=== PATIENT | male | born 1985 | race Caucasian/White ===

== ENCOUNTER → 2017-11-15 | Outpatient (CLI) | payer OTHER ==
--- NOTE | 2017-11-18 10:46 | CPEEG ---
[f rep st] ELECTROENCEPHALOGRAM ELECTROENCEPHALOGRAM. DATE OF STUDY: 11/15/2017 DATE OF INTERPRETATION: 11/18/2017 INTERPRETATION: This EEG contains a mild degree of diffuse nonspecific slowing. These findings coul d be consistent with a mild diffuse disturbance of cerebral function or related to medication effect. There were no potentially epileptogenic abnormalities present in the awake or sleep recordings. REPORT: This EEG contains 9 Hz alpha activity to the posterior head regions. There was a mild degre e of diffuse nonspecific slowing composed of intermittent theta frequency activity and minimal delta frequency activity. There was no persistent high-amplitude, severe focal slowing present. There was no abnormal epileptiform activation at rest, during photic stimulation or hyperventilation. The pat ient became drowsy and fell asleep during the study. There was no abnormal activation during drowsin ess, sleep, or during times of arousal. /[id number]/MODL
== END ==
LOC: FCPNEURO 09:44
PROVIDERS: ATTEND Psychiatry & Neurology Neurology
DX: R55 Syncope and collapse (principal); Z72.820 Sleep deprivation

== ENCOUNTER 2019-01-02 11:45 | Inpatient (IN) | payer OTHER ==
--- NOTE | 2019-01-02 12:40 | EDPHY ---
H & P Stated Complaint: SI x1wk, plan to jump lst niht, no attempts, med change 2018 Time Seen by Provider: 01/02/19 12:22 HPI/ROS: CHIEF COMPLAINT: Suicidal ideation HISTORY OF PRESENT ILLNESS: 33-year-old male history of schizoaffective disorder, of: Residing at [facility] in the ER with child welfare caseworker from [facility]. Patient is complaining of progressive suicidal ideation. Last evening he went to the top floor of a parking structure and came close to jumping off. He notes recent change in his lithium medication. He denies hallucination. Denies street drug use. PRIMARY CARE PROVIDER: REVIEW OF SYSTEMS: 10 systems reviewed and negative with the exception of the elements mentioned in the history of present illness PAST MEDICAL & SURGICAL HISTORY: Schizoaffective disorder SOCIAL HISTORY: Denies acute alcohol or drug use PHYSICAL EXAM (Prior to examination, patient consented to physical exam, hands were washed and my usual and customary physical exam procedures followed) 1) GENERAL: Well-developed, well-nourished, alert and oriented. Appears to be in no acute distress. 2) HEAD: Normocephalic, atraumatic 3) HEENT: Pupils equal, round, reactive to light bilaterally. Sclera anicteric. Nasopharynx, oropharynx, clear, no lesions. MoistDry mucous membranes. Ears bilaterally with normal tympanic membranes. 4) NECK: Full range of motion, no meningeal signs. 5) LUNGS: Clear auscultation bilaterally, no wheezes, no rhonchi, no retractions. 6) HEART: Regular rate and rhythm, no murmur, no heave, no gallop. 7) ABDOMEN: No guarding, no rebound, no focal tenderness, negative McBurney's, negative Maldonado's, negative Rovsing's, negative peritoneal sign, 8) MUSCULOSKELETAL: Moving all extremities, no focal areas of tenderness, no obvious trauma. No peripheral edema or discoloration. 9) BACK: No CVA tenderness, no midline vertebral tenderness, no fluctuance, no step-off, no obvious trauma, no visual or palpable abnormality. 10) SKIN: No rash, no petechiae. 11) Psychiatric: Patient is oriented X 3, there is no agitation. Depressed, flat affect. Appears sad. 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, schizoaffective disorder, tonsillectomy - Social History Smoking Status: Current every day smoker Constitutional: Initial Vital Signs Temperature (C) 37.0 C 01/02/19 11:52 Heart Rate 117 H 01/02/19 11:52 Respiratory Rate 18 01/02/19 11:52 Blood Pressure 105/64 01/02/19 11:52 O2 Sat (%) 97 01/02/19 11:52 O2 Delivery Mode Room Air Allergies/Adverse Reactions: Penicillins Allergy (Unknown, Verified 01/02/19 11:52) Home Medications: Medication Instructions Recorded Ascorbic Acid [Vitamin C 500 mg 1,000 mg PO HS 07/05/16 (*)] Docusate Sodium [Colace 100 MG (*)] 200 mg PO HS 07/05/16 Levomefolate/Algal Oil 1 each PO HS 07/05/16 [[place]plin-Algal Oil 15 mg Capsule] Mirtazapine [Remeron] 15 mg PO HS 07/05/16 Magnesium Oxide [Magnesium Oxide 400 mg PO HS #0 tab 07/11/16 400 mg (*)] Benztropine Mesylate 1 mg PO HS 01/02/19 Herbals/Supplements -Info Only 1 ea PO DAILY 01/02/19 [place] Carbonate ER [Lithobid 300 600 mg PO HS 01/02/19 mg (*)] Lurasidone HCl [Latuda] 40 mg PO HS 01/02/19 Lurasidone HCl [Latuda] 120 mg PO HS 01/02/19 Nortriptyline HCl [Pamelor 25 mg 100 mg PO HS 01/02/19 (*)] Pantoprazole Sodium [Protonix 40mg 40 mg PO DAILY 01/02/19 (*)] cloZAPine [Clozaril (*)] 25 mg PO HS 01/02/19 cloZAPine [Clozaril (*)] 400 mg PO HS 01/02/19 lamoTRIgine [LamICTAL 100 MG (*)] 300 mg PO HS 01/02/19 Medical Decision Making ED Course/Re-evaluation: 12:34 p.m.: Discussed case with secondary supervising physician Dr. Nicko Burns in the ER. Patient endorses active suicidal ideation. Last evening he went to the top floor parking garage and came close to jumping. I think the patient poses an imminent danger to himself. 2:00 p.m.: Patient has been accepted for transfer [address] physician Dr. Aron Bates - Data Points Laboratory Results: Laboratory Results 01/02/19 12:50 01/02/19 12:50 01/02/19 01/02/19 01/02/19 12:50 12:50 12:50 WBC 6.33 10^3/uL 10^3/uL (3.80-9.50) RBC 4.60 10^6/uL 10^6/uL (4.40-6.38) Hgb 14.6 g/dL g/dL (13.7-17.5) Hct 44.7 % % (40.0-51.0) MCV 97.2 fL fL (81.5-99.8) MCH 31.7 pg pg (27.9-34.1) MCHC 32.7 g/dL g/dL (32.4-36.7) RDW 12.4 % % (11.5-15.2) Plt Count 202 10^3/uL 10^3/uL (150-400) MPV 9.0 fL fL (8.7-11.7) Neut % (Auto) 64.4 % % (39.3-74.2) Lymph % (Auto) 22.7 % % (15.0-45.0) [place] % (Auto) 9.6 % % (4.5-13.0) Eos % (Auto) 2.5 % % (0.6-7.6) Baso % (Auto) 0.5 % % (0.3-1.7) Nucleat RBC Rel Count 0.0 % % (0.0-0.2) Absolute Neuts (auto) 4.07 10^3/uL 10^3/uL (1.70-6.50) Absolute Lymphs (auto) 1.44 10^3/uL 10^3/uL (1.00-3.00) Absolute Monos (auto) 0.61 10^3/uL 10^3/uL (0.30-0.80) Absolute Eos (auto) 0.16 10^3/uL 10^3/uL (0.03-0.40) Absolute Basos (auto) 0.03 10^3/uL 10^3/uL (0.02-0.10) Absolute Nucleated RBC 0.00 10^3/uL 10^3/uL (0-0.01) Immature Gran % 0.3 % % (0.0-1.1) Immature Gran # 0.02 10^3/uL 10^3/uL (0.00-0.10) Sodium 140 mEq/L mEq/L (135-145) Potassium 3.9 mEq/L mEq/L (3.5-5.2) Chloride 105 mEq/L mEq/L (97-110) Carbon Dioxide 25 mEq/l mEq/l (22-31) Anion Gap 10 mEq/L mEq/L (6-14) BUN 13 mg/dL mg/dL (7-23) Creatinine 1.0 mg/dL mg/dL (0.7-1.3) Estimated GFR > 60 Glucose 83 mg/dL mg/dL (70-100) Calcium 10.2 mg/dL mg/dL (8.5-10.4) Salicylates < 1.0 mg/dL L mg/dL (2.0-20.0) Urine Opiates Screen NEGATIVE (NEGATIVE) Acetaminophen < 10 mcg/mL L mcg/mL (10-30) Urine Barbiturates NEGATIVE (NEGATIVE) Ur Phencyclidine Scrn NEGATIVE (NEGATIVE) Ur Amphetamine Screen NEGATIVE (NEGATIVE) U Benzodiazepines Scrn NON-NEGATIVE H (NEGATIVE) [place] 0.8 mEq/L mEq/L (0.6-1.2) Urine Cocaine Screen NEGATIVE (NEGATIVE) U Marijuana (THC) Screen NON-NEGATIVE H (NEGATIVE) Ethyl Alcohol < 10 mg/dL mg/dL (0-10) Departure - Departure Disposition: [facility] Clinical Impression: Suicidal ideation Condition: Fair
[2019-01-02 13:03] LABS: PLATELET COUNT 202 10^3/uL (150-400)
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
--- NOTE | 2019-01-02 13:59 | ASMTTCLDSP ---
TLC Discharge Disposition Disposition: Answers: Admit Disposition Notes: Notes: Admit 3N. Discharge Concerns/Recommendations: Notes: In consultation with [facility] ED physician, Nicko Burns MD and on-call psychiatrist, Aron Bates MD, both concurred that pt appears to meet 27-65 criteria requiring psychiatric hospitalization as pt appears to be at risk of harm to self due to a mental illness condition. Pt was read the Patient Rights and Responsibilities Statement on 01/02/19 at 1330 hrs, original placed on chart, and was given photocopy of Rights. Pt signed the Patient Rights. Pt was given the 3N prohibited belongings list while in the ED. Was patient given the Answers: Yes Inpatient Behavioral Health Prohibited Belongings List while in the ED? For inpatient Aron Bates MD admission, the following psychiatrist agreed to accept patient for admission to Behavioral Health ([facility]): Type of Hold: Answers: M1/72-hour Hold Hold initiated by: Answers: ED Physician Date Signed: 01/02/2019 01:59 PM Electronically Signed By:Ld Zuniga
--- NOTE | 2019-01-02 15:29 | PDCONSULT ---
Central Office Operator Supervisor Note: HPI: Marshall Dudley is a 33 yo male with a PMHx of shizoaffective d/o who presents to [facility] for suicidal ideation. Per chart review, patient went to top floor of parking structure last evening to jump off but did not. He has been on multiple medications for schizoaffective in the past and reports a recent change in lithium dosing. He currently denies chest pain, SOB, d/c, n/v, f/c, palpitations. ROS: 10 point review of systems was performed with systems negative including those mentioned in HPI. PE: GEN: Unkempt, NAD HEENT: Anicteric, PERRLA CARDS: RRR, no edema presents LUNGS: CTA b/l Abd: No distention Ext: No c/c/e Neuro: AAOx3, no focal deficits A&P: 1. Suicidal Ideations: In setting of hx of schizoaffective - Defer management to IP psych team for further evaluation 2. GERD - Reports has been on PPI in the past, not currently, no recent heartburn, no need to continue for now 3. Tobacco Abuse - Nicotine patch if requested Patient is medically cleared for admission to IP psychiatric unit for further assessment and management of active psychiatric issues. ]
[2019-01-02] MEDS ORDERED: MAG HYDROX/AL HYDROX/SIMETH 30 ML UDCUP PO PRN (15:33)
[2019-01-02] MEDS ORDERED: MAGNESIUM HYDROXIDE 30 ML UDCUP PO PRN (15:33)
[2019-01-02] MEDS ORDERED: OLANZapine DISINTEGR 10 MG TAB PO PRN (15:33)
[2019-01-02] MEDS ORDERED: ACETAMINOPHEN 325 MG TAB PO PRN (15:33)
[2019-01-02] MEDS: MAGNESIUM OXIDE 400 MG TAB PO SCH (20:23)
[2019-01-02] MEDS: lamoTRIgine 100 MG TAB PO SCH (20:23)
[2019-01-02] MEDS: ASCORBIC ACID 500 MG TAB PO SCH (20:23)
[2019-01-02] MEDS: cloZAPine 100 MG TAB PO SCH (20:24)
[2019-01-02] MEDS: DOCUSATE SODIUM 100 MG CAP PO SCH (20:24)
[2019-01-02] MEDS: ALGAL OIL PO SCH (20:32)
[2019-01-02] MEDS: LEVOMEFOLATE PO SCH (20:32)
[2019-01-02] MEDS: LORazepam 0.5 MG TAB PO PRN (20:54)
[2019-01-03] MEDS: PANTOPRAZOLE SODIUM 40 MG TAB PO SCH (08:05)
[2019-01-03] MEDS: NICOTINE POLACRILEX 2 MG GUM B PRN ×5 (08:18→18:23)
--- NOTE | 2019-01-03 08:47 | ASMTBHMTP ---
Master Treatment Plan Master Treatment Plan Answers: Depressed Mood with for: Suicidal Ideation Date: 01/02/2019 Diagnosis on Admission: Schizoaffective Disorder, Bipolar Type 295.70 (F25.0) Expected length of stay: 3-5 days Reason for admission: Notes: Per Report: Pt is a 33 yo male with history of schizoaffective disorder, cannabis use disorder, moderate, and anorexia. Pt is well known to [facility] behavioral health from previous inpatient and outpatient treatments both on the inpatient psychiatric unit and in inpatient and outpatient ECT. Pt was brought to [facility] ED today accompanied by [facility] staff due to pt struggling again with suicidal ideation. He was then placed on M1 hold by ED provider which noted: Marshall complained of suicidal ideation. Last night, went to a parking garage and thought about jumping. He poses an imminent danger to himself. Pt noted recent change in his [place] medication. His most recent inpatient stay at [facility] was from 07/05/16 to 08/08/16 after pt was transferred to [facility] from [facility]. Pt has a history of psychotic depression which was conceptualized by his long-time psychiatrist, Dr. Hyatt as being separate from his schizoaffective disorder. When this occurs, pt will have intense feelings of guilt, shame, low self-worth and increased paranoia in a delusional system that seems to only emerge during his severe depression. He will also then have intense thoughts of self-harm and suicide. This had been occurring off and on and had led to several hospitalizations in 2016. Pt has responded well to ECT treatments, both on an inpatient and outpatient maintenance basis. He has been in [facility] for the past 12 years. He was admitted to [facility] residential program on 12/22/18 and his current psychiatrist is Jocelin Espinoza MD. Patient's stated presenting problems: Notes: "[I] had suicidal ideations." Patient's goals for treatment: Notes: "To see a doctor and probably make a medication change." Patient's strengths: Notes: None really Identify supports outside of hospital: Notes: "[facility]" Discharge criteria: Notes: Suicidal Ideation will resolve and patient will have a plan to safely manage recurrent suicidal ideaitons. Initial disposition plan/considerations: Notes: Return to [facility] or [facility]* Master Treatment Plan Required Signatures Psychiatrist signature: Answers: Psychiatrist: RN on-shift signature: Answers: RN: Patient signature: Answers: Patient: Date Signed: 01/03/2019 08:47 AM Electronically Signed By:Gus Zarate
--- NOTE | 2019-01-03 13:33 | ASMTCMCOM ---
CM Note CM Note Notes: Client presents as mostly pleasant towards this inspector automatic typewriter. He remains walking up and down the hallway for the majority of his free time. Client suggests he "would like to return to [facility] when I get out hospital..." Client does show some limited insight towards his mental health issues by acknowledging his want/need to transition to [facility], etc. Client's affect is alert, normal eye contact, guarded at times while restrictive at times. Client will be on the unit throughout the weekend with a re-assessment on Saturday to determine what his stay in the hospital would look like. Date Signed: 01/03/2019 01:33 PM Electronically Signed By:Gus Zarate
[2019-01-03] MEDS: ASCORBIC ACID 500 MG TAB PO SCH (21:09)
[2019-01-03] MEDS: LITHIUM CARBONATE ER 300 MG TAB PO SCH (21:09)
[2019-01-03] MEDS: lamoTRIgine 100 MG TAB PO SCH (21:10)
[2019-01-03] MEDS: cloZAPine 100 MG TAB PO SCH (21:10)
[2019-01-03] MEDS ORDERED: OLANZapine DISINTEGR 10 MG TAB PO PRN (21:11)
[2019-01-03] MEDS: MAGNESIUM OXIDE 400 MG TAB PO SCH (21:11)
[2019-01-03] MEDS: DOCUSATE SODIUM 100 MG CAP PO SCH (21:13)
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
[2019-01-03] MEDS: LEVOMEFOLATE PO SCH (22:22)
[2019-01-03] MEDS: ALGAL OIL PO SCH (22:22)
[2019-01-04] MEDS: PANTOPRAZOLE SODIUM 40 MG TAB PO SCH (08:33)
[2019-01-04] MEDS ORDERED: LITHIUM CARBONATE ER 300 MG TAB PO SCH (09:00)
[2019-01-04] MEDS: NICOTINE POLACRILEX 2 MG GUM B PRN ×4 (10:40→18:23)
[2019-01-04] MEDS: cloZAPine 100 MG TAB PO SCH (20:53)
[2019-01-04] MEDS: MAGNESIUM OXIDE 400 MG TAB PO SCH (20:54)
[2019-01-04] MEDS: LITHIUM CARBONATE ER 300 MG TAB PO SCH (20:54)
[2019-01-04] MEDS: lamoTRIgine 100 MG TAB PO SCH (20:54)
[2019-01-04] MEDS: ASCORBIC ACID 500 MG TAB PO SCH (20:54)
[2019-01-04] MEDS: DOCUSATE SODIUM 100 MG CAP PO SCH (20:55)
[2019-01-04] MEDS: LEVOMEFOLATE PO SCH (21:19)
[2019-01-04] MEDS: ALGAL OIL PO SCH (21:19)
--- NOTE | 2019-01-04 22:03 | SOAPPROG ---
SOAP Progress Note Assessment/Plan: Assessment: 33yo w hx schizoaffective d/o and THC use d/o, admitted with incr SI and recent plan/intent to jump from parking structure. considering ECT b/c notes this helped in past. has had recent med changes and recent transition to residential tx from apt due to incr sxs. Plan: 01/04/19 15:21 slept 8hr. only drinking Ensure and snacks, but not meals. continues on SP-1. on interview, reported +SI this morning, until this afternoon when he started to pray. felt this helped. however, notes he did not feel full of "sorrow" this AM which is like a heavy weight for him. but SI usually resolve much more quickly. Endorses +AH "pretty negative", external, which is not command but rather contributes to SI, telling him to give up on life, life is not worth living..." denies hx of restricting or weight concerns nor a fear of eating. just rather reports restlessness causes him to not feel like eating. states Latuda quit working for him. not feeling as physically restless as when on it. denies s/e to [place]. used to be on higher doses of Clozapine and Lamictal. Variably recalls that something was helpful but then reports not sure if it was helpful. Wants something in AM for his SI. Discussed med options, considered incr Clozapine to 50/400, seems he may have had recent incr to 450 as outpt. later then pt changes mind, seeming to have been worrying about this since decision made, and wants just to take all at HS. but easily persuaded to just try additional low dose Clozapine in AM. Wants to do ECT or maybe not b/c he "was desperate yesterday" but not so today. Altho "I'm optimistic" about a response to med changes. Yet also states he was having "some anger, wanted to punch a wall, because I've been stuck in this suicidal pattern", waking up depressed w/SI. wakes at 3-4am. states he's not sure why he was on Remeron or Nortriptyline but had been on the latter for 2-3yr not sure if that dose. denies feeling more agitated, restless, or noting other s/e of d/c of Nortriptyline. has not been requesting prn Ativan, and this was a home med at 0.5mg bid. encouraged pt to request if needing for now. mse: cooperative, seems eager to engage in conversation. nml speech rate/low vol and soft-spoken, slightly dysarticulate seems due to missing teeth. no abn invol mvmts noted. depressed mood, dysphoric affect, tp/tc- perseverative on his chronic AM SI and depression, and ambivalence, reporting AH but does not currently appear RIS. +SI as noted but not presently, and denied plan/intent to harm self, but such persistent thoughts are distressing. denied thoughts to harm others. i/j both fair. recognizes need for hosp/tx. cognition intact. A& Ox4. PLAN: Pt wants to discuss ECT, but also ambivalent, shani recalls benefit. Restarted on several home meds but some held to decr polypharm and pt questions benefit. not seeming to have any signif physical sxs related to d/c of meds --restarted clozapine 400hs (altho may have been on 450mg)- pt willing to take 50mg in AM. States he used to be on much higher in past, >500mg. --Cont [place] at pt request for mood stabilization. recalls this med was recently increased. currently 300/600. divided dose to give some AM effect --Cont Lamictal 300mg HS. (in 2016 was on higher dose. --off Nortriptyline 100mg hs. States has been on this for 2+yr. May experience some discontinuation effects from this. Will hold off on restarting this med for now --During week, need to D/W oupt [facility] provider his med hx, hx of med changes, responses, indications etc. --cont on SP-1. Objective: Vital Signs Temp Pulse Resp BP Pulse Ox 36.4 C 97 15 97/62 L 97 01/04/19 06:00 01/04/19 06:00 01/04/19 06:00 01/04/19 06:00 01/04/19 06:00 ICD10 Worksheet Patient Problems: Problems Problem Status Onset Suicidal ideation Acute Homicidal ideation Acute Schizo-affective schizophrenia, chronic condition with acute exacerbation Acute
[2019-01-05] MEDS: LORazepam 0.5 MG TAB PO PRN ×2 (06:29→16:07)
[2019-01-05] MEDS: NICOTINE POLACRILEX 2 MG GUM B PRN ×3 (08:54→14:00)
[2019-01-05] MEDS: PANTOPRAZOLE SODIUM 40 MG TAB PO SCH (08:54)
--- NOTE | 2019-01-05 17:45 | SOAPPROG ---
SOAP Progress Note Assessment/Plan: Assessment: Plan: 01/05/19 17:46 Mood: 33 y/o CM well known to me from previous treatments. He presents with treatment resistant mood disorder and SI. He is requesting retrial of ECT after failed meds and TMS. Will discuss with pt's outpatient psychiatrist, Dr. Simon, and formulate plan. Will restart Latuda. EKG ordered. Subjective: Pt seen, discussed with staff, chart reviewed. Interviewed with therapist, Billy, present from [facility]. Discussed recent course and he notes "feeling depressed for two years." Describes no real benefit from TMS. He states he is motivated to do another trial of ECT. We discussed the possibility of that. I indicated that I would review that and the medications with Dr. Simon. Pt states he wants to be back on Latuda. Objective: Vital Signs Temp Pulse Resp BP Pulse Ox 36.9 C 90 16 125/76 H 98 01/05/19 06:00 01/05/19 06:00 01/05/19 06:00 01/05/19 06:00 01/05/19 06:00 Marginally groomed, very thin. Pleasant and cooperative. Affect is restricted , dysphoric, stable, approp. Mood is "depressed." TP is linear. TC reveals no mention of delusions or hallucinations. - Time Spent With Patient Time Spent With Patient: 35" ICD10 Worksheet Patient Problems: Problems Problem Status Onset Suicidal ideation Acute Homicidal ideation Acute Schizo-affective schizophrenia, chronic condition with acute exacerbation Acute
[2019-01-05] MEDS: MAGNESIUM OXIDE 400 MG TAB PO SCH (21:29)
[2019-01-05] MEDS: LITHIUM CARBONATE ER 300 MG TAB PO SCH (21:29)
[2019-01-05] MEDS: cloZAPine 100 MG TAB PO SCH (21:30)
[2019-01-05] MEDS: lamoTRIgine 100 MG TAB PO SCH (21:30)
[2019-01-05] MEDS: DOCUSATE SODIUM 100 MG CAP PO SCH ×2 (21:30→21:34)
[2019-01-05] MEDS: ASCORBIC ACID 500 MG TAB PO SCH (21:31)
[2019-01-05] MEDS: ALGAL OIL PO SCH (21:31)
[2019-01-05] MEDS: LEVOMEFOLATE PO SCH (21:31)
[2019-01-06] MEDS: LURASIDONE HCL 80 MG TAB PO SCH (08:09)
[2019-01-06] MEDS: PANTOPRAZOLE SODIUM 40 MG TAB PO SCH (08:10)
[2019-01-06] MEDS ORDERED: LURASIDONE HCL 40 MG TAB PO SCH (09:00)
[2019-01-06] MEDS: LORazepam 0.5 MG TAB PO PRN (09:06)
[2019-01-06] MEDS: NICOTINE POLACRILEX 2 MG GUM B PRN ×2 (14:40→20:03)
--- NOTE | 2019-01-06 14:56 | SOAPPROG ---
SOAP Progress Note Assessment/Plan: Assessment: Plan: 01/05/19 17:46 Mood: 33 y/o CM well known to me from previous treatments. He presents with treatment resistant mood disorder and SI. He is requesting retrial of ECT after failed meds and TMS. Will discuss with pt's outpatient psychiatrist, Dr. Simon, and formulate plan. Will restart Latuda. EKG ordered. 01/06/19 14:57 Mood: Remains depressed with prominent SI, paranoia. Will proceed with ECT starting tomorrow. I again reviewed the risks, benefits and alternatives with patient and he is able to give informed consent. Subjective: Pt seen, discussed with staff, interviewed in Treatment Team. Case reviewed with Dr. Simon, pt's outpatient provider. He is in agreement with ECT. Pt tells the TT today that he is sure Latuda "is not working any more" and wants to discontinue it. I reflected to him that this is in contrast to his strong desire to take it yesterday. He acknowledges this, but does not change his opinion. He is compliant with meds. Rather guarded, but not isolative. Objective: Vital Signs Temp Pulse Resp BP Pulse Ox 36.5 C 104 H 16 121/82 H 98 01/06/19 06:00 01/06/19 06:00 01/06/19 06:00 01/06/19 06:00 01/06/19 06:00 MSE: Moderately anxious, guarded, coop. Affect is restricted, stable, approp. Mood is "not good." TP is linear. TC reveals some paranoia. SI persists. - Time Spent With Patient Time Spent With Patient: 25" ICD10 Worksheet Patient Problems: Problems Problem Status Onset Suicidal ideation Acute Homicidal ideation Acute Schizo-affective schizophrenia, chronic condition with acute exacerbation Acute
[2019-01-06] MEDS ORDERED: HYDROCODONE/APAP 5/325 TAB PO PRN (15:03)
[2019-01-06] MEDS ORDERED: ONDANSETRON DISINTEGRATING 4 MG TAB PO PRN (15:03)
[2019-01-06] MEDS ORDERED: IBUPROFEN 600 MG TAB PO PRN (15:03)
[2019-01-06] MEDS: LITHIUM CARBONATE ER 300 MG TAB PO SCH (18:07)
[2019-01-06] MEDS: lamoTRIgine 100 MG TAB PO SCH (18:07)
[2019-01-06] MEDS: MAGNESIUM OXIDE 400 MG TAB PO SCH (20:05)
[2019-01-06] MEDS: DOCUSATE SODIUM 100 MG CAP PO SCH (20:05)
[2019-01-06] MEDS: cloZAPine 100 MG TAB PO SCH (20:06)
[2019-01-06] MEDS: LEVOMEFOLATE PO SCH (20:06)
[2019-01-06] MEDS: ALGAL OIL PO SCH (20:06)
[2019-01-06] MEDS: ASCORBIC ACID 500 MG TAB PO SCH (20:06)
[2019-01-07] MEDS ORDERED: ONDANSETRON DISINTEGRATING 4 MG TAB PO PRN (05:00)
[2019-01-07] MEDS ORDERED: CITRIC ACID/SODIUM CITRATE 30 ML UDCUP PO PRN (05:00)
[2019-01-07] MEDS ORDERED: ONDANSETRON 4 MG/2 ML VIAL ONE (07:24)
[2019-01-07] MEDS ORDERED: fentaNYL 100 MCG/2 ML INJ ONE (07:24)
[2019-01-07] MEDS ORDERED: MIDAZOLAM 2 MG/2 ML VIAL ONE (07:24)
[2019-01-07] MEDS ORDERED: METHOHEXITAL SODIUM 100 MG/10 ML SYR IVP ONE (07:24)
[2019-01-07] MEDS ORDERED: GLYCOPYRROLATE 0.2 MG/1 ML VIAL ONE (07:24)
[2019-01-07] MEDS ORDERED: SUCCINYLCHOLINE CHLORIDE 200 MG/10 ML VIAL ONE (07:24)
[2019-01-07] MEDS: PANTOPRAZOLE SODIUM 40 MG TAB PO SCH (07:41)
[2019-01-07] MEDS: LURASIDONE HCL 80 MG TAB PO SCH (07:47)
[2019-01-07] MEDS ORDERED: ONDANSETRON DISINTEGRATING 4 MG TAB ONE (09:54)
[2019-01-07] MEDS ORDERED: CITRIC ACID/SODIUM CITRATE 30 ML UDCUP ONE (09:54)
[2019-01-07] MEDS: NS 1,000 ML IV PRN (09:57)
--- NOTE | 2019-01-07 10:11 | PDHPUP ---
History & Physical Update H&P update statement: This history and physical update is based on an assessment of the patient which was completed after admission or registration (within 24 hours), but prior to the surgery/procedure. H&P update: H&P reviewed & patient examined, no change in patient's condition since H&P completed
--- NOTE | 2019-01-07 10:11 | PDANEPAE ---
ANE Past Medical History - Cardiovascular History Hx Hypertension: No Hx Arrhythmias: No Hx Chest Pain: No Hx Coronary Artery / Peripheral Vascular Disease: No Hx Palpitations: No - Pulmonary History Hx Oxygen in Use at Home: No Hx Sleep Apnea: No - Neurologic History Hx Cerebrovascular Accident: No - Endocrine History Hx Diabetes: No Obesity: no - Renal History Hx Renal Disorders: No - Liver History Hx Hepatic Disorders: No - Cancer History Hx Cancer: No - Chronic Pain History Chronic Pain: No - Surgical History Prior Surgeries: None ANE Review of Systems Review of Systems: ANE Patient History - Allergies Allergies/Adverse Reactions: Penicillins Allergy (Unknown, Verified 01/02/19 11:52) - Home Medications Home medications: home medication list seen and reviewed Home Medications: Ascorbic Acid [Vitamin C 500 mg (*)] 1,000 mg PO HS 07/05/16 [Last Taken ] Docusate Sodium [Colace 100 MG (*)] 200 mg PO HS 07/05/16 [Last Taken Unknown] Levomefolate/Algal Oil [Deplin-Algal Oil 15 mg Capsule] 1 each PO HS 07/05/16 [ Last Taken Unknown] Mirtazapine [Remeron] 15 mg PO HS 07/05/16 [Last Taken 07/03/16] Benztropine Mesylate 1 mg PO HS 01/02/19 [Last Taken Unknown] Herbals/Supplements -Info Only 1 ea PO DAILY 01/02/19 [Last Taken Unknown] [place] Carbonate ER [Lithobid 300 mg (*)] 600 mg PO HS 01/02/19 [Last Taken Unknown] Lurasidone HCl [Latuda] 40 mg PO HS 01/02/19 [Last Taken Unknown] Lurasidone HCl [Latuda] 120 mg PO HS 01/02/19 [Last Taken Unknown] Nortriptyline HCl [Pamelor 25 mg (*)] 100 mg PO HS 01/02/19 [Last Taken Unknown] Pantoprazole Sodium [Protonix 40mg (*)] 40 mg PO DAILY 01/02/19 [Last Taken Unknown] cloZAPine [Clozaril (*)] 25 mg PO HS 01/02/19 [Last Taken Unknown] cloZAPine [Clozaril (*)] 400 mg PO HS 01/02/19 [Last Taken Unknown] lamoTRIgine [LamICTAL 100 MG (*)] 300 mg PO HS 01/02/19 [Last Taken Unknown] - NPO status NPO Status: no food or drink >8 hours - Anes Hx Anes Hx: no prior problems - Smoking Hx Smoking Status: Current every day smoker - Family Anes Hx Family Hx Anesthesia Complications: None ANE Labs/Vital Signs - Labs Result Diagrams: 01/02/19 12:50 01/02/19 12:50 - Vital Signs Blood Pressure: 114/87 Heart Rate: 119 Respiratory Rate: 16 O2 Sat (%): 99 Height: 180.34 cm Weight: 51.256 kg ANE Physical Exam - Airway Neck exam: FROM Mallampati Score: Class 2 Mouth exam: normal dental/mouth exam - Pulmonary Pulmonary: no respiratory distress, no rales or rhonchi, clear to auscultation - Cardiovascular Cardiovascular: regular rate and rhythym, no murmur, rub, or gallop - ASA Status ASA Status: II ANE Anesthesia Plan Anesthesia Plan: GA with mask
[2019-01-07] MEDS ORDERED: KETOROLAC 30 MG/1 ML SDV ONE (10:17)
--- NOTE | 2019-01-07 10:20 | PDECTPN ---
ECT Progress Note Patient Problems: Problems Problem Status Onset Code Suicidal ideation Acute R45.851 Homicidal ideation Acute R45.850 Schizo-affective schizophrenia, chronic condition with acute exacerbation Acute F25.8 Date: 01/07/19 ECT provider: Beka Bates Anesthesia: Hunter Lima Stimulus dose (%): 75 Pulse width: 0.5 ECT EMG (sec): 52 ECT EEG (sec): 119 ECT treatment type: bilateral QIDS-SR Total Score: 21 QIDS-SR Question #12 Score: 3 MMSE Total Score (Max = 21): 21 Next ECT date: 01/09/19 Home medications: Medication Instructions Recorded Ascorbic Acid [Vitamin C 500 mg 1,000 mg PO HS 07/05/16 (*)] Docusate Sodium [Colace 100 MG (*)] 200 mg PO HS 07/05/16 Levomefolate/Algal Oil 1 each PO HS 07/05/16 [Deplin-Algal Oil 15 mg Capsule] Mirtazapine [Remeron] 15 mg PO HS 07/05/16 Magnesium Oxide [Magnesium Oxide 400 mg PO HS #0 tab 07/11/16 400 mg (*)] Benztropine Mesylate 1 mg PO HS 01/02/19 Herbals/Supplements -Info Only 1 ea PO DAILY 01/02/19 [place] Carbonate ER [Lithobid 300 600 mg PO HS 01/02/19 mg (*)] Lurasidone HCl [Latuda] 40 mg PO HS 01/02/19 Lurasidone HCl [Latuda] 120 mg PO HS 01/02/19 Nortriptyline HCl [Pamelor 25 mg 100 mg PO HS 01/02/19 (*)] Pantoprazole Sodium [Protonix 40mg 40 mg PO DAILY 01/02/19 (*)] cloZAPine [Clozaril (*)] 25 mg PO HS 01/02/19 cloZAPine [Clozaril (*)] 400 mg PO HS 01/02/19 lamoTRIgine [LamICTAL 100 MG (*)] 300 mg PO HS 01/02/19 Medication review: completed Current treatment plan: acute phase Treatment plan frequency: 3 times per week ECT narrative: Pt presents to begin acute course ECT. Currently inpatient due to acute depression and SI. Case reviewed with outpatient psychiatrist, Dr. Simon, who is supportive of treatment. He reports "bad depression" and trouble sleeping. Also c/o some paranoia, but is guarded re: psychotic sx's. Poorly groomed, guarded, coop. Affect is dysphoric, restricted, stable. Mood is "depressed." TP is linear. TC reveals paranoia. Underwent bilateral ECT with no complications. Continued acute course ECT.
--- NOTE | 2019-01-07 10:34 | POSTANESTH ---
Post Anesthetic Evaluation Cardiovascular Status: Normal, Stable, Similar to Pre-Op Cond Respiratory Status: Normal, Stable, Similar to Pre-op Cond. Level of Consciousness/Mental Status: Unconscious Complications Possibly Related to Anesthesia: None Noted
--- NOTE | 2019-01-07 13:54 | ASMTCMCOM ---
CM Note CM Note Notes: Client presents as mostly pleasant towards this typewriter tester. Client suggests he "would like to return to [facility] when I get out hospital..." Client does show some limited insight towards his mental health issues by acknowledging his want/need to transition to [facility], etc. Client's affect is appropriate for someone just having ECT. Client had first ECT treatment and rested for the majority of the day.* Date Signed: 01/07/2019 01:54 PM Electronically Signed By:Gus Zarate
[2019-01-07] MEDS: NICOTINE POLACRILEX 2 MG GUM B PRN (17:51)
[2019-01-07] MEDS: DOCUSATE SODIUM 100 MG CAP PO SCH (20:05)
[2019-01-07] MEDS: ASCORBIC ACID 500 MG TAB PO SCH (20:45)
[2019-01-07] MEDS: LITHIUM CARBONATE ER 300 MG TAB PO SCH (20:45)
[2019-01-07] MEDS: lamoTRIgine 100 MG TAB PO SCH (20:45)
[2019-01-07] MEDS: MAGNESIUM OXIDE 400 MG TAB PO SCH (20:45)
[2019-01-07] MEDS: cloZAPine 100 MG TAB PO SCH (20:45)
[2019-01-07] MEDS: ALGAL OIL PO SCH (20:49)
[2019-01-07] MEDS: LEVOMEFOLATE PO SCH (20:49)
[2019-01-08] MEDS: PANTOPRAZOLE SODIUM 40 MG TAB PO SCH (08:40)
[2019-01-08] MEDS: LURASIDONE HCL 80 MG TAB PO SCH (08:53)
--- NOTE | 2019-01-08 09:04 | CPEKG ---
Test Reason : OPEN Blood Pressure : / mmHG Vent. Rate : 098 BPM Atrial Rate : 098 BPM P-R Int : 160 ms QRS Dur : 076 ms QT Int : 332 ms P-R-T Axes : 065 066 060 degrees QTc Int : [address] ELEV, PROBABLE NORMAL EARLY REPOL PATTERN Confirmed by Bobby Lal ([id number]) on 01/08/2019 9:04:30 AM Referred By: Beka Bates Confirmed By:Bobby Lal
[2019-01-08] MEDS: NICOTINE POLACRILEX 2 MG GUM B PRN ×8 (09:19→20:30)
--- NOTE | 2019-01-08 16:02 | SOAPPROG ---
SOAP Progress Note Assessment/Plan: Assessment: Plan: 01/05/19 17:46 Mood: 33 y/o CM well known to me from previous treatments. He presents with treatment resistant mood disorder and SI. He is requesting retrial of ECT after failed meds and TMS. Will discuss with pt's outpatient psychiatrist, Dr. Simon, and formulate plan. Will restart Latuda. EKG ordered. 01/06/19 14:57 Mood: Remains depressed with prominent SI, paranoia. Will proceed with ECT starting tomorrow. I again reviewed the risks, benefits and alternatives with patient and he is able to give informed consent. 01/08/19 16:02 Mood: Unchanged. [facility]: acute course ECT. Subjective: Pt seen, discussed with staff. Reports feeling "not good." Pacing in moreno. Asks if he can start "something for depression - something like Latuda." I reviewed with him his recent objections (be them ambivalent) in regards to this medication. I discussed waiting until we see how the ECT helps before considering changing meds. Objective: Vital Signs Temp Pulse Resp BP Pulse Ox 36.6 C 99 16 109/56 L 98 01/08/19 06:00 01/08/19 06:00 01/08/19 06:00 01/08/19 06:00 01/08/19 06:00 01/07/19 01/08/19 01/09/19 05:59 05:59 05:59 Intake Total 950 Balance 950 MSE: Moderately agitated, pacing. Affect is constricted, stable, approp. Mood is "not good." TP is linear with some negative perseverations. TC reveals paranoid thoughts. SI persists. - Time Spent With Patient Time Spent With Patient: 15" ICD10 Worksheet Patient Problems: Problems Problem Status Onset Suicidal ideation Acute Homicidal ideation Acute Schizo-affective schizophrenia, chronic condition with acute exacerbation Acute
[2019-01-08] MEDS: cloZAPine 100 MG TAB PO SCH (19:40)
[2019-01-08] MEDS: ASCORBIC ACID 500 MG TAB PO SCH (19:41)
[2019-01-08] MEDS: MAGNESIUM OXIDE 400 MG TAB PO SCH (19:41)
[2019-01-08] MEDS: LITHIUM CARBONATE ER 300 MG TAB PO SCH (19:46)
[2019-01-08] MEDS: LEVOMEFOLATE PO SCH (19:46)
[2019-01-08] MEDS: ALGAL OIL PO SCH (19:46)
[2019-01-08] MEDS: lamoTRIgine 100 MG TAB PO SCH (19:47)
[2019-01-08] MEDS: DOCUSATE SODIUM 100 MG CAP PO SCH (19:48)
[2019-01-09] MEDS ORDERED: CITRIC ACID/SODIUM CITRATE 30 ML UDCUP PO PRN (05:00)
[2019-01-09] MEDS ORDERED: NS 1,000 ML IV PRN (05:00)
[2019-01-09] MEDS ORDERED: ONDANSETRON DISINTEGRATING 4 MG TAB PO PRN (05:00)
[2019-01-09] MEDS ORDERED: ONDANSETRON DISINTEGRATING 4 MG TAB ONE (06:37)
[2019-01-09] MEDS ORDERED: CITRIC ACID/SODIUM CITRATE 30 ML UDCUP ONE (06:37)
[2019-01-09] MEDS: NS 1,000 ML IV PRN (06:42)
[2019-01-09] MEDS ORDERED: GLYCOPYRROLATE 0.2 MG/1 ML VIAL ONE (06:56)
[2019-01-09] MEDS ORDERED: SUCCINYLCHOLINE CHLORIDE 200 MG/10 ML VIAL ONE (06:56)
[2019-01-09] MEDS ORDERED: fentaNYL 100 MCG/2 ML INJ ONE (06:56)
[2019-01-09] MEDS ORDERED: ONDANSETRON 4 MG/2 ML VIAL ONE (06:56)
[2019-01-09] MEDS ORDERED: KETOROLAC 30 MG/1 ML SDV ONE (06:56)
[2019-01-09] MEDS ORDERED: METHOHEXITAL SODIUM 100 MG/10 ML SYR IVP ONE (06:57)
--- NOTE | 2019-01-09 07:01 | PDANEPAE ---
ANE Past Medical History - Cardiovascular History Hx Hypertension: No Hx Arrhythmias: No Hx Chest Pain: No Hx Coronary Artery / Peripheral Vascular Disease: No Hx Palpitations: No - Pulmonary History Hx Oxygen in Use at Home: No Hx Sleep Apnea: No - Neurologic History Hx Cerebrovascular Accident: No - Endocrine History Hx Diabetes: No Obesity: no - Renal History Hx Renal Disorders: No - Liver History Hx Hepatic Disorders: No - Cancer History Hx Cancer: No - Chronic Pain History Chronic Pain: No - Surgical History Prior Surgeries: None ANE Review of Systems Review of Systems: ANE Patient History - Allergies Allergies/Adverse Reactions: Penicillins Allergy (Unknown, Verified 01/02/19 11:52) - Home Medications Home medications: home medication list seen and reviewed Home Medications: Ascorbic Acid [Vitamin C 500 mg (*)] 1,000 mg PO HS 07/05/16 [Last Taken ] Docusate Sodium [Colace 100 MG (*)] 200 mg PO HS 07/05/16 [Last Taken Unknown] Levomefolate/Algal Oil [Deplin-Algal Oil 15 mg Capsule] 1 each PO HS 07/05/16 [ Last Taken Unknown] Mirtazapine [Remeron] 15 mg PO HS 07/05/16 [Last Taken 07/03/16] Benztropine Mesylate 1 mg PO HS 01/02/19 [Last Taken Unknown] Herbals/Supplements -Info Only 1 ea PO DAILY 01/02/19 [Last Taken Unknown] [place] Carbonate ER [Lithobid 300 mg (*)] 600 mg PO HS 01/02/19 [Last Taken Unknown] Lurasidone HCl [Latuda] 40 mg PO HS 01/02/19 [Last Taken Unknown] Lurasidone HCl [Latuda] 120 mg PO HS 01/02/19 [Last Taken Unknown] Nortriptyline HCl [Pamelor 25 mg (*)] 100 mg PO HS 01/02/19 [Last Taken Unknown] Pantoprazole Sodium [Protonix 40mg (*)] 40 mg PO DAILY 01/02/19 [Last Taken Unknown] cloZAPine [Clozaril (*)] 25 mg PO HS 01/02/19 [Last Taken Unknown] cloZAPine [Clozaril (*)] 400 mg PO HS 01/02/19 [Last Taken Unknown] lamoTRIgine [LamICTAL 100 MG (*)] 300 mg PO HS 01/02/19 [Last Taken Unknown] - NPO status NPO Status: no food or drink >8 hours - Anes Hx Anes Hx: no prior problems - Smoking Hx Smoking Status: Current every day smoker - Family Anes Hx Family Hx Anesthesia Complications: None ANE Labs/Vital Signs - Labs Result Diagrams: 01/02/19 12:50 01/02/19 12:50 - Vital Signs Blood Pressure: 108/63 Heart Rate: 103 Respiratory Rate: 15 O2 Sat (%): 97 Height: 180.34 cm Weight: 51.256 kg ANE Physical Exam - Airway Neck exam: FROM Mallampati Score: Class 2 Mouth exam: normal dental/mouth exam - Pulmonary Pulmonary: no respiratory distress, no rales or rhonchi, clear to auscultation - Cardiovascular Cardiovascular: regular rate and rhythym, no murmur, rub, or gallop - ASA Status ASA Status: II ANE Anesthesia Plan Anesthesia Plan: GA with mask
--- NOTE | 2019-01-09 07:12 | PDECTPN ---
ECT Progress Note Patient Problems: Problems Problem Status Onset Code Suicidal ideation Acute R45.851 Homicidal ideation Acute R45.850 Schizo-affective schizophrenia, chronic condition with acute exacerbation Acute F25.8 Date: 01/09/19 ECT provider: Beka Bates Anesthesia: Hunter Lima Stimulus dose (%): 80 Pulse width: 0.5 ECT EMG (sec): 50 ECT EEG (sec): 98 ECT treatment type: bilateral QIDS-SR Total Score: 9 QIDS-SR Question #12 Score: 1 MMSE Total Score (Max = 21): 20 Next ECT date: 01/12/19 Home medications: Medication Instructions Recorded Ascorbic Acid [Vitamin C 500 mg 1,000 mg PO HS 07/05/16 (*)] Docusate Sodium [Colace 100 MG (*)] 200 mg PO HS 07/05/16 Levomefolate/Algal Oil 1 each PO HS 07/05/16 [[place]-Algal Oil 15 mg Capsule] Mirtazapine [Remeron] 15 mg PO HS 07/05/16 Magnesium Oxide [Magnesium Oxide 400 mg PO HS #0 tab 07/11/16 400 mg (*)] Benztropine Mesylate 1 mg PO HS 01/02/19 Herbals/Supplements -Info Only 1 ea PO DAILY 01/02/19 [place] Carbonate ER [Lithobid 300 600 mg PO HS 01/02/19 mg (*)] Lurasidone HCl [Latuda] 40 mg PO HS 01/02/19 Lurasidone HCl [Latuda] 120 mg PO HS 01/02/19 Nortriptyline HCl [Pamelor 25 mg 100 mg PO HS 01/02/19 (*)] Pantoprazole Sodium [Protonix 40mg 40 mg PO DAILY 01/02/19 (*)] cloZAPine [Clozaril (*)] 25 mg PO HS 01/02/19 cloZAPine [Clozaril (*)] 400 mg PO HS 01/02/19 lamoTRIgine [LamICTAL 100 MG (*)] 300 mg PO HS 01/02/19 Medication review: completed Current treatment plan: acute phase Treatment plan frequency: 3 times per week ECT narrative: Pt presents to continue acute course ECT. Reports no change in overall mood. Continues to struggle with paranoid thoughts and negative obsessions. Drinking Ensure, but eating poorly. Grooming remains marginal. Isolating in room or pacing halls. Poorly groomed, guarded, coop. Affect is dysphoric, restricted, stable. Mood is "depressed." TP is linear. TC reveals paranoia. SI unchanged. Underwent bilateral ECT with no complications. Continued acute course ECT.
[2019-01-09] MEDS: LURASIDONE HCL 80 MG TAB PO SCH (08:13)
[2019-01-09] MEDS: PANTOPRAZOLE SODIUM 40 MG TAB PO SCH (08:13)
[2019-01-09] MEDS: NICOTINE POLACRILEX 2 MG GUM B PRN ×9 (10:17→21:48)
[2019-01-09] MEDS ORDERED: NS 1,000 ML BAG ONE (12:19)
[2019-01-09] MEDS: LEVOMEFOLATE PO SCH (20:45)
[2019-01-09] MEDS: ALGAL OIL PO SCH (20:45)
[2019-01-09] MEDS: DOCUSATE SODIUM 100 MG CAP PO SCH (21:37)
[2019-01-09] MEDS: cloZAPine 100 MG TAB PO SCH (21:40)
[2019-01-09] MEDS: lamoTRIgine 100 MG TAB PO SCH (21:40)
[2019-01-09] MEDS: MAGNESIUM OXIDE 400 MG TAB PO SCH (21:41)
[2019-01-09] MEDS: LITHIUM CARBONATE ER 300 MG TAB PO SCH (21:41)
[2019-01-09] MEDS: ASCORBIC ACID 500 MG TAB PO SCH (21:41)
[2019-01-10] MEDS: PANTOPRAZOLE SODIUM 40 MG TAB PO SCH (08:23)
[2019-01-10] MEDS: LURASIDONE HCL 80 MG TAB PO SCH (08:23)
[2019-01-10] MEDS: NICOTINE POLACRILEX 2 MG GUM B PRN ×8 (10:31→21:11)
--- NOTE | 2019-01-10 10:47 | ASMTCMCOM ---
CM Note CM Note Notes: Pt. reports feeling "good". Pt. stated he slept "pretty well". Pt. reports getting enough to eat and attending groups. Pt. reports no issues with his current medications. Pt. stated he had ECT yesterday, adding it "went fine". Pt. denied having any headaches or nausea after ECT. Pt. reports having no issues while on the unit. Pt. stated he hopes to discharge on Saturday or Saturday. Pt. denied SI, HI, AVH and paranoia. Pt. presents as alert, mostly calm, pacing the halls, fair to poor eye contact, and cooperative. Staff report pt. sleeping 8 hours and being medication compliant. Pt. is scheduled for ECT on Saturday. Weekday CC to reach out for outpatient follow up appointments. Per provider on Saturday, pt. will discharge at the end of this coming week. Date Signed: 01/10/2019 10:46 AM Electronically Signed By:Isabel Merrill
--- NOTE | 2019-01-10 17:17 | SOAPPROG ---
SOAP Progress Note Assessment/Plan: Assessment: Per Dr. Baets's note: 01/08/19 16:02 Mood: Unchanged. [facility] inc: acute course ECT. Subjective: Pt seen, discussed with staff. Reports feeling "not good." Pacing in moreno. Asks if he can start "something for depression - something like Latuda." I reviewed with him his recent objections (be them ambivalent) in regards to this medication. I discussed waiting until we see how the ECT helps before considering changing meds. Plan: 01/10/19 17:14 1. Patient is pacing in halls for several hours. 2. Patient remains extremely paranoid, won't eat food from cafeteria, only eats chips and canned drinks. 3. ECT x 3 this week. Next ECT on Saturday. Subjective: Patient pacing in hallway, won't slow down or stop when MD approaches him to ask how he's doing. Patient says, "Hi" but doesn't want to answer any further questions. He continues to exhibit extreme paranoid delusions, particularly around food items. He is drinking Ensure and sealed beverages, but won't eat food prepared in cafeteria. Objective: Vital Signs Temp Pulse Resp BP Pulse Ox 36.9 C 82 14 97/66 L 98 01/10/19 06:00 01/10/19 06:00 01/10/19 06:00 01/10/19 06:00 01/10/19 06:00 01/09/19 01/10/19 01/11/19 05:59 05:59 05:59 Intake Total 700 Balance 700 MSE: Affect: Blunted Mood: "OK" TP: Perseverative TC: Denies any SI/HI, very paranoid Perception: Denies any AH/VH Insight/Judgment: Poor - Time Spent With Patient Time Spent With Patient: 15" - Pending Discharge Pending Discharge Within 24 Hours: No Pending Discharge Within 48 Hours: No ICD10 Worksheet Patient Problems: Problems Problem Status Onset Suicidal ideation Acute Homicidal ideation Acute Schizo-affective schizophrenia, chronic condition with acute exacerbation Acute
[2019-01-10] MEDS: LITHIUM CARBONATE ER 300 MG TAB PO SCH (21:09)
[2019-01-10] MEDS: ASCORBIC ACID 500 MG TAB PO SCH (21:10)
[2019-01-10] MEDS: DOCUSATE SODIUM 100 MG CAP PO SCH ×2 (21:10→21:14)
[2019-01-10] MEDS: MAGNESIUM OXIDE 400 MG TAB PO SCH (21:10)
[2019-01-10] MEDS: lamoTRIgine 100 MG TAB PO SCH (21:10)
[2019-01-10] MEDS: cloZAPine 100 MG TAB PO SCH (21:11)
[2019-01-10] MEDS: LEVOMEFOLATE PO SCH (21:15)
[2019-01-10] MEDS: ALGAL OIL PO SCH (21:15)
[2019-01-10] MEDS: LORazepam 0.5 MG TAB PO PRN (23:10)
[2019-01-11] MEDS: PANTOPRAZOLE SODIUM 40 MG TAB PO SCH (08:55)
[2019-01-11] MEDS: LURASIDONE HCL 80 MG TAB PO SCH (08:55)
[2019-01-11] MEDS: NICOTINE POLACRILEX 2 MG GUM B PRN ×5 (10:32→19:11)
--- NOTE | 2019-01-11 15:52 | ASMTCMCOM ---
CM Note CM Note Notes: The patient appeared disheveled with upon contact with this group underwriter although he reported having recently showered. He emphasized feeling "better." He elaborated stating that he had been anxious due to disruption by a peer patient in the milieu. According to [facility] staff, he is requesting to discharge on Saturday. He is scheduled for ECT tx on 01/12/19 @ 8:00. The patient reportedly ate "0% for breakfast/lunch and 5% for dinner" on 01/10. He was observed pacing the hallway much of the day. He continues to rate himself a 2/10 without intent on the suicide scale. He is not currently requesting medication changes. He slept 8 hours. Date Signed: 01/11/2019 03:52 PM Electronically Signed By:Raiza Angulo
--- NOTE | 2019-01-11 18:03 | SOAPPROG ---
SOAP Progress Note Assessment/Plan: Assessment: Per Dr. Bates's note: 01/08/19 16:02 Mood: Unchanged. [facility] inc: acute course ECT. Subjective: Pt seen, discussed with staff. Reports feeling "not good." Pacing in moreno. Asks if he can start "something for depression - something like Latuda." I reviewed with him his recent objections (be them ambivalent) in regards to this medication. I discussed waiting until we see how the ECT helps before considering changing meds. Plan: 01/10/19 17:14 1. Patient is pacing in halls for several hours. 2. Patient remains extremely paranoid, won't eat food from cafeteria, only eats chips and canned drinks. 3. ECT x 3 this week. Next ECT on Saturday. 01/11/19 17:57 1. Patient stopped pacing in moreno and had brief conversation with MD. 2. Patient did not make any requests to change his medication regimen. 3. Patient ate only 5% of dinner last night and had apple juice and yogurt for snack at HS. 4. Patient slept 8 hrs last night. 5. ECT on Saturday. Subjective: Patient pacing in halls chewing Nicorette gum. Patient willing to stop pacing and talk briefly with MD. Patient says he feels suicidal "all the time" but denies he has any plan or intent. Patient does not want any changes to his meds and is willing to keep on same regimen. He has not been eating any food prepared in cafeteria. He drinks juice or beverages in sealed containers and snacks instead. He only ate 5% of meals during whole day yesterday. He reports SI is "low" today and denies any plan or intent to hurt himself or anyone else in hospital. Objective: Vital Signs Temp Pulse Resp BP Pulse Ox 36.7 C 104 H 14 114/67 99 01/11/19 06:00 01/11/19 06:00 01/11/19 06:00 01/11/19 06:00 01/11/19 06:00 01/10/19 01/11/19 01/12/19 05:59 05:59 05:59 Intake Total 700 Balance 700 MSE: Affect: Blunted Mood: "OK" TP: Goal-directed mostly, perseverative TC: Denies any SI/HI, still paranoid Insight/Judgment: Poor - Time Spent With Patient Time Spent With Patient: 15" - Pending Discharge Pending Discharge Within 24 Hours: No Pending Discharge Within 48 Hours: No ICD10 Worksheet Patient Problems: Problems Problem Status Onset Suicidal ideation Acute Homicidal ideation Acute Schizo-affective schizophrenia, chronic condition with acute exacerbation Acute
[2019-01-11] MEDS: cloZAPine 100 MG TAB PO SCH (21:01)
[2019-01-11] MEDS: ASCORBIC ACID 500 MG TAB PO SCH (21:02)
[2019-01-11] MEDS: MAGNESIUM OXIDE 400 MG TAB PO SCH (21:02)
[2019-01-11] MEDS: DOCUSATE SODIUM 100 MG CAP PO SCH (21:02)
[2019-01-11] MEDS: lamoTRIgine 100 MG TAB PO SCH (21:29)
[2019-01-11] MEDS: LITHIUM CARBONATE ER 300 MG TAB PO SCH (21:30)
[2019-01-11] MEDS: ALGAL OIL PO SCH (21:30)
[2019-01-11] MEDS: LEVOMEFOLATE PO SCH (21:30)
[2019-01-12] MEDS ORDERED: ONDANSETRON DISINTEGRATING 4 MG TAB PO PRN (04:00)
[2019-01-12] MEDS ORDERED: CITRIC ACID/SODIUM CITRATE 30 ML UDCUP PO PRN (04:00)
[2019-01-12] MEDS ORDERED: NS 1,000 ML IV PRN (04:00)
[2019-01-12] MEDS: PANTOPRAZOLE SODIUM 40 MG TAB PO SCH (05:59)
[2019-01-12] MEDS ORDERED: CITRIC ACID/SODIUM CITRATE 30 ML UDCUP ONE (07:17)
[2019-01-12] MEDS ORDERED: ONDANSETRON DISINTEGRATING 4 MG TAB ONE (07:17)
[2019-01-12] MEDS ORDERED: fentaNYL 100 MCG/2 ML INJ ONE (08:04)
[2019-01-12] MEDS ORDERED: SUCCINYLCHOLINE CHLORIDE 200 MG/10 ML VIAL ONE (08:05)
[2019-01-12] MEDS ORDERED: ONDANSETRON 4 MG/2 ML VIAL ONE (08:06)
--- NOTE | 2019-01-12 08:13 | PDANEPAE ---
ECT Pre Anesthetic Evaluation Allergies/Adverse Reactions: Penicillins Allergy (Unknown, Verified 01/02/19 11:52) Patient ID confirmed: Yes H&P reviewed: Yes Pre-anesthetic history reviewed: Yes Heart: regular rate and rhythym, no murmur, rub, or gallop Lungs: no respiratory distress, no rales or rhonchi Mallampati Score: Class 1 ASA Status: II, III Home Medications: Medication Instructions Recorded Ascorbic Acid [Vitamin C 500 mg 1,000 mg PO HS 07/05/16 (*)] Docusate Sodium [Colace 100 MG (*)] 200 mg PO HS 07/05/16 Levomefolate/Algal Oil 1 each PO HS 07/05/16 [[place]-Algal Oil 15 mg Capsule] Mirtazapine [Remeron] 15 mg PO HS 07/05/16 Magnesium Oxide [Magnesium Oxide 400 mg PO HS #0 tab 07/11/16 400 mg (*)] Benztropine Mesylate 1 mg PO HS 01/02/19 Herbals/Supplements -Info Only 1 ea PO DAILY 01/02/19 [place] Carbonate ER [Lithobid 300 600 mg PO HS 01/02/19 mg (*)] Lurasidone HCl [Latuda] 40 mg PO HS 01/02/19 Lurasidone HCl [Latuda] 120 mg PO HS 01/02/19 Nortriptyline HCl [Pamelor 25 mg 100 mg PO HS 01/02/19 (*)] Pantoprazole Sodium [Protonix 40mg 40 mg PO DAILY 01/02/19 (*)] cloZAPine [Clozaril (*)] 25 mg PO HS 01/02/19 cloZAPine [Clozaril (*)] 400 mg PO HS 01/02/19 lamoTRIgine [LamICTAL 100 MG (*)] 300 mg PO HS 01/02/19 Medication review: completed Patient interviewed: Yes Patient examined: Yes Anesthetic plan discussed with patient: Yes Anesthetic risks discussed with patient: Yes ECT Pre-Anesthetic History - Height & Weight Height: 180.34 cm Weight: 50.8 kg BMI: 15.63 - Anesthesia History Hx Anesthesia Complications (with details): None Family Hx Anesthesia Complications: None - Medications In the Past 6 Months the Patient Has Taken: Steroids, Antibiotics, Anti- coagulants, Aspirin, Arthritis Medication, Thyroid Medication, Tranquilizers, Narcotics, Insulin, Blood Pressure Medication, Heart Medications, Diuretics - Tobacco/Alcohol/Drug Use Smoking Status: Current every day smoker Alcohol Use: No - Prior Surgeries/Hospitalizations Prior Surgeries: None Prior Medical Hospitalizations: None - Pulmonary History ECT Hx Asthma: No Hx Abnormal Chest X-Ray: No Hx Oxygen in Use at Home: No - Cardiovascular History Hx Hypertension: No Currently Uses Hypertension Medication: No Hx Arrhythmias: No Hx Palpitations: No Hx Chest Pain: No Hx Coronary Artery / Peripheral Vascular Disease: No Hx Blood Clot: No - Neurologic History Hx Cerebrovascular Accident: No Hx CT Scan Or MRI Of The Brain: No Hx Epilepsy, Convulsions, Seizures, Or Blackouts: No Hx Frequent Or Severe Headaches: No Hx Numbness: No Hx Neurologic Disorder: No - Dental History Current Dental Issues: Chipped Teeth, Loose Teeth - Endocrine History Hx Diabetes: No Current Daily Insulin Injections: No Hx Thyroid Problems: No - Renal/Urologic History Hx Renal Disorders: No Hx Urinary Tract Problems: No - Liver History Hx Hepatic Disorders: No - Cancer History Hx Cancer: No - Hematology History Hx Unexplained Bleeding Of Any Type: No Hx Ease Of Bruising: No Hx Anemia: No - Gastrointestinal History Hx Gastroesophogeal Reflux Disease: No Hx Ulcers: No Hx Hiatal Hernia: No Hx Difficulty Swallowing: No - Musculoskeletal Hisory Hx Chronic Pain: No Hx Arthritis: No - Opthalmic History Hx Glaucoma: No Visual Assistive Devices: None Hx Opthalmic Disorders: No - Other Health History Physical Disabililty: No Recent Cough, Cold, or Fever: No Significant Weight Loss In The Last 4 Months: Yes Possible the Patient Might be : No
--- NOTE | 2019-01-12 08:21 | PDECTPN ---
ECT Progress Note Patient Problems: Problems Problem Status Onset Code Suicidal ideation Acute R45.851 Homicidal ideation Acute R45.850 Schizo-affective schizophrenia, chronic condition with acute exacerbation Acute F25.8 Date: 01/12/19 ECT provider: Beka Bates Anesthesia: Bee Stephenson Stimulus dose (%): 80 Pulse width: 0.5 ECT EMG (sec): 33 ECT EEG (sec): 85 ECT treatment type: bilateral QIDS-SR Total Score: 9 QIDS-SR Question #12 Score: 1 MMSE Total Score (Max = 21): 20 Next ECT date: 01/14/19 O/P psychiatrist follow up with DrHeather: Alfred Lilburn medications: Medication Instructions Recorded Ascorbic Acid [Vitamin C 500 mg 1,000 mg PO HS 07/05/16 (*)] Docusate Sodium [Colace 100 MG (*)] 200 mg PO HS 07/05/16 Levomefolate/Algal Oil 1 each PO HS 07/05/16 [[place]-Algal Oil 15 mg Capsule] Mirtazapine [Remeron] 15 mg PO HS 07/05/16 Magnesium Oxide [Magnesium Oxide 400 mg PO HS #0 tab 07/11/16 400 mg (*)] Benztropine Mesylate 1 mg PO HS 01/02/19 Herbals/Supplements -Info Only 1 ea PO DAILY 01/02/19 [place] Carbonate ER [Lithobid 300 600 mg PO HS 01/02/19 mg (*)] Lurasidone HCl [Latuda] 40 mg PO HS 01/02/19 Lurasidone HCl [Latuda] 120 mg PO HS 01/02/19 Nortriptyline HCl [Pamelor 25 mg 100 mg PO HS 01/02/19 (*)] Pantoprazole Sodium [Protonix 40mg 40 mg PO DAILY 01/02/19 (*)] cloZAPine [Clozaril (*)] 25 mg PO HS 01/02/19 cloZAPine [Clozaril (*)] 400 mg PO HS 01/02/19 lamoTRIgine [LamICTAL 100 MG (*)] 300 mg PO HS 01/02/19 Medication review: completed Current treatment plan: acute phase Treatment plan frequency: 3 times per week ECT narrative: Pt presents to continue acute course ECT. Reports improvement in mood over the weekend. States he wants to discharge today or tomorrow to avoid the move to the new building. I encouraged him to stay through the end of the week. We agreed to consult with Billy from [facility] prior to deciding. Reports uneventful weekend with notable subjective brightening in mood. Poorly groomed, anxious, guarded, coop. Affect is dysphoric, restricted, stable. Mood is "better." TP is linear. TC reveals paranoia. SI unchanged. Underwent bilateral ECT with no complications. Continued acute course ECT.
[2019-01-12] MEDS ORDERED: MIDAZOLAM 2 MG/2 ML VIAL ONE (08:22)
--- NOTE | 2019-01-12 08:35 | POSTANESTH ---
Post Anesthetic Evaluation Cardiovascular Status: Normal, Stable, Similar to Pre-Op Cond Respiratory Status: Normal, Stable, Similar to Pre-op Cond. Level of Consciousness/Mental Status: Moderately Sleepy Pain Control: Adequate, Prn Tx Ordered Nausea/Vomiting Control: Adequate, Prn Tx Ordered Complications Possibly Related to Anesthesia: None Noted
[2019-01-12] MEDS: LURASIDONE HCL 80 MG TAB PO SCH (10:22)
[2019-01-12] MEDS: NICOTINE POLACRILEX 2 MG GUM B PRN (13:08)
[2019-01-12] MEDS: cloZAPine 100 MG TAB PO SCH (21:12)
[2019-01-12] MEDS: ASCORBIC ACID 500 MG TAB PO SCH (21:12)
[2019-01-12] MEDS: lamoTRIgine 100 MG TAB PO SCH (21:12)
[2019-01-12] MEDS: LITHIUM CARBONATE ER 300 MG TAB PO SCH (21:13)
[2019-01-12] MEDS: MAGNESIUM OXIDE 400 MG TAB PO SCH (21:13)
[2019-01-12] MEDS: DOCUSATE SODIUM 100 MG CAP PO SCH (21:16)
[2019-01-12] MEDS: ALGAL OIL PO SCH (21:16)
[2019-01-12] MEDS: LEVOMEFOLATE PO SCH (21:16)
[2019-01-13] MEDS: PANTOPRAZOLE SODIUM 40 MG TAB PO SCH (08:42)
[2019-01-13] MEDS: LURASIDONE HCL 80 MG TAB PO SCH (08:42)
[2019-01-13] MEDS: NICOTINE POLACRILEX 2 MG GUM B PRN ×9 (10:27→20:52)
--- NOTE | 2019-01-13 14:14 | ASMTCMCOM ---
CM Note CM Note Notes: CC spoke with pt's father about the move to [facility] being rescheduled to 01/20/19. FOC was not aware pt. was in the hospital. Date Signed: 01/13/2019 02:13 PM Electronically Signed By:Isabel Merrill
[2019-01-13] MEDS: MAGNESIUM OXIDE 400 MG TAB PO SCH (19:30)
[2019-01-13] MEDS: ASCORBIC ACID 500 MG TAB PO SCH (19:30)
[2019-01-13] MEDS: cloZAPine 100 MG TAB PO SCH (19:31)
[2019-01-13] MEDS: ALGAL OIL PO SCH (19:31)
[2019-01-13] MEDS: lamoTRIgine 100 MG TAB PO SCH (19:31)
[2019-01-13] MEDS: LEVOMEFOLATE PO SCH (19:31)
[2019-01-13] MEDS: LITHIUM CARBONATE ER 300 MG TAB PO SCH (19:31)
[2019-01-13] MEDS: DOCUSATE SODIUM 100 MG CAP PO SCH (19:40)
--- NOTE | 2019-01-13 20:24 | SOAPPROG ---
SOAP Progress Note Assessment/Plan: Assessment: Plan: 01/05/19 17:46 Mood: 33 y/o CM well known to me from previous treatments. He presents with treatment resistant mood disorder and SI. He is requesting retrial of ECT after failed meds and TMS. Will discuss with pt's outpatient psychiatrist, Dr. Simon, and formulate plan. Will restart Latuda. EKG ordered. 01/06/19 14:57 Mood: Remains depressed with prominent SI, paranoia. Will proceed with ECT starting tomorrow. I again reviewed the risks, benefits and alternatives with patient and he is able to give informed consent. 01/08/19 16:02 Mood: Unchanged. [facility] inc: acute course ECT. 01/13/19 20:23 Mood: Remains depressed. Improving with ECT, though not confident to leave inpatient setting. [facility]. Subjective: Pt seen, discussed with staff. Friendly and upbeat. Able to joke around today. Agreeable to staying until . Remains generally reclusive. Unable to articulate his feelings. Paranoid. States "everyone thinks I'm a psychotic killer." SI persists. Objective: Vital Signs Temp Pulse Resp BP Pulse Ox 36.4 C 122 H 16 103/66 98 01/13/19 06:00 01/13/19 14:16 01/13/19 06:00 01/13/19 06:00 01/13/19 14:16 01/12/19 01/13/19 01/14/19 05:59 05:59 05:59 Intake Total 995 Balance 995 MSE: Disheveled, malodorous. Affect is restricted, stable. Mood is "depressed." TP is linear, though abbreviated. TC reveals paranoid thoughts, IOR's. SI persits. ?HI. ICD10 Worksheet Patient Problems: Problems Problem Status Onset Suicidal ideation Acute Homicidal ideation Acute Schizo-affective schizophrenia, chronic condition with acute exacerbation Acute
[2019-01-14] MEDS ORDERED: NS 1,000 ML IV PRN (06:00)
[2019-01-14] MEDS ORDERED: CITRIC ACID/SODIUM CITRATE 30 ML UDCUP PO PRN (06:00)
[2019-01-14] MEDS ORDERED: ONDANSETRON DISINTEGRATING 4 MG TAB PO PRN (06:00)
[2019-01-14] MEDS: PANTOPRAZOLE SODIUM 40 MG TAB PO SCH (08:29)
[2019-01-14] MEDS ORDERED: ONDANSETRON DISINTEGRATING 4 MG TAB ONE (12:15)
[2019-01-14] MEDS ORDERED: CITRIC ACID/SODIUM CITRATE 30 ML UDCUP ONE (12:15)
[2019-01-14] MEDS ORDERED: MIDAZOLAM 2 MG/2 ML VIAL ONE (12:55)
[2019-01-14] MEDS ORDERED: fentaNYL 100 MCG/2 ML INJ ONE (12:55)
[2019-01-14] MEDS ORDERED: METHOHEXITAL SODIUM 100 MG/10 ML SYR IVP ONE (13:00)
--- NOTE | 2019-01-14 13:14 | PDECTPN ---
ECT Progress Note Patient Problems: Problems Problem Status Onset Code Suicidal ideation Acute R45.851 Homicidal ideation Acute R45.850 Schizo-affective schizophrenia, chronic condition with acute exacerbation Acute F25.8 Date: 01/14/19 ECT provider: Beka Bates Anesthesia: Bee Stephenson Stimulus dose (%): 80 Pulse width: 0.5 ECT EMG (sec): 45 ECT EEG (sec): 83 ECT treatment type: bilateral QIDS-SR Total Score: 10 QIDS-SR Question #12 Score: 1 MMSE Total Score (Max = 21): 20 Next ECT date: 01/16/19 Next ECT time: 13:30 O/P psychiatrist follow up with DrHeather: [facility] [place] medications: Medication Instructions Recorded Ascorbic Acid [Vitamin C 500 mg 1,000 mg PO HS 07/05/16 (*)] Docusate Sodium [Colace 100 MG (*)] 200 mg PO HS 07/05/16 Levomefolate/Algal Oil 1 each PO HS 07/05/16 [[place]-Algal Oil 15 mg Capsule] Mirtazapine [Remeron] 15 mg PO HS 07/05/16 Magnesium Oxide [Magnesium Oxide 400 mg PO HS #0 tab 07/11/16 400 mg (*)] Benztropine Mesylate 1 mg PO HS 01/02/19 Herbals/Supplements -Info Only 1 ea PO DAILY 01/02/19 [place] Carbonate ER [Lithobid 300 600 mg PO HS 01/02/19 mg (*)] Lurasidone HCl [Latuda] 40 mg PO HS 01/02/19 Lurasidone HCl [Latuda] 120 mg PO HS 01/02/19 Nortriptyline HCl [Pamelor 25 mg 100 mg PO HS 01/02/19 (*)] Pantoprazole Sodium [Protonix 40mg 40 mg PO DAILY 01/02/19 (*)] cloZAPine [Clozaril (*)] 25 mg PO HS 01/02/19 cloZAPine [Clozaril (*)] 400 mg PO HS 01/02/19 lamoTRIgine [LamICTAL 100 MG (*)] 300 mg PO HS 01/02/19 Medication review: completed Current treatment plan: acute phase Treatment plan frequency: 3 times per week ECT narrative: Pt presents to continue acute course ECT. Reports continued improvement in mood. Remains isolative and flat. Remains worried "what people think about me ", focused on perception that others are afraid of him because of his " homicidal tendencies." Seen by Billy yesterday who states he does not thiink he is ready for d/c yet. Poorly groomed, anxious, guarded, coop. Affect is dysphoric, blunted to flat, stable. Mood is "better." TP is linear. TC reveals paranoia. SI unchanged. Underwent bilateral ECT with no complications. Continued acute course ECT. Remains quite depressed, flat, but improving.
[2019-01-14] MEDS: LURASIDONE HCL 80 MG TAB PO SCH (14:41)
[2019-01-14] MEDS: LITHIUM CARBONATE ER 300 MG TAB PO SCH (20:22)
[2019-01-14] MEDS: DOCUSATE SODIUM 100 MG CAP PO SCH (20:22)
[2019-01-14] MEDS: MAGNESIUM OXIDE 400 MG TAB PO SCH (20:23)
[2019-01-14] MEDS: ASCORBIC ACID 500 MG TAB PO SCH (20:23)
[2019-01-14] MEDS: lamoTRIgine 100 MG TAB PO SCH (20:23)
[2019-01-14] MEDS: cloZAPine 100 MG TAB PO SCH (20:23)
[2019-01-14] MEDS: ALGAL OIL PO SCH (20:26)
[2019-01-14] MEDS: LEVOMEFOLATE PO SCH (20:26)
[2019-01-14] MEDS: NICOTINE POLACRILEX 2 MG GUM B PRN (22:38)
[2019-01-15 06:32] VITALS: BP 110/72
[2019-01-15] MEDS: PANTOPRAZOLE SODIUM 40 MG TAB PO SCH (08:40)
[2019-01-15] MEDS: LURASIDONE HCL 80 MG TAB PO SCH (08:40)
[2019-01-15] MEDS: NICOTINE POLACRILEX 2 MG GUM B PRN (09:02)
[2019-01-17] MEDS ORDERED: PROPOFOL 200 MG/20 ML VIAL ONE (12:19)
[2019-01-17] MEDS ORDERED: ePHEDrine SULFATE 25 MG/5 ML SYR ONE ×3 (12:19→15:41)
[2019-01-17] MEDS ORDERED: PHENYLEPHRINE HCL 100 MCG/ML SYR ONE ×4 (12:19→15:41)
[2019-01-17] MEDS ORDERED: CALCIUM CHLORIDE 1 GM/10 ML INJ ONE ×2 (15:30)
[2019-01-17] MEDS ORDERED: ROCURONIUM 50 MG/5 ML VIAL ONE (15:41)
[2019-01-17] MEDS ORDERED: fentaNYL 100 MCG/2 ML INJ ONE (15:42)
== END 2019-01-15 09:40 | disposition home or self-care (01) | DRG 885 ==
LOC: BBEH 15:20
PROVIDERS: ADMIT Psychiatry & Neurology Psychiatry; ATTEND Psychiatry & Neurology Psychiatry
PROC: GZB2ZZZ Electroconvulsive Therapy, Bilateral-Single Seizure (ICD-10-PCS; principal; 2019-01-07)
DX: F25.1 Schizoaffective disorder, depressive type (principal); F12.959 Cannabis use, unspecified with psychotic disorder, unspecified; K21.9 Gastro-esophageal reflux disease without esophagitis; Z72.0 Tobacco use
CPT/HCPCS: 80305; G0480; J0330; J1885; J2250; J2370; J2405; J2704; J3010